=== PATIENT | female | born 1970 | race Caucasian/White ===

== ENCOUNTER 2021-08-12 06:55 | Day surgery (SDC) | payer BC ==
[~2021-08-12] VITALS: Ht 162.6 cm; Wt 136.4 kg
[~2021-08-12 06:55] MED LIST: ALLEGRA ALLERGY60 MG PO; ATORVASTATIN CA20 MG PO; COZAAR100 MG PO; HYDROCHLOROTH12.5 MG PO; HYDROCODON-ACE1 EA10 PO; IBU800 MG PO; LISINOPRIL10 MG PO; PERCOCET 10-321 EACH PO; SIMVASTATIN10 MG PO; SINGULAIR10 MG PO; ZOFRAN4 MG SL
[2021-08-12] MEDS ORDERED: XYZAL5 MG PO (07:41)
--- NOTE | 2021-08-12 08:48 | NUR ---
PT ALERT, ORIENTED AND SUPPORTED BY HER FRIEND TIEN. PT SEEMS ALITTLE DISCOURAGED, HAS HAD PROCEDURE PREVIOUS. PT REQUESTED PRAYER AND TIEN WILL REMAIN FOR DC. WILL FOLLOW NEEDED
--- NOTE | 2021-08-12 10:09 | NUR ---
08/12/21 1009 Madina Gerber 1000-PATIENT ARRIVED TO PACU ON RA RR EVEN. PATIENT AWAKE DROWSY DENIES PAIN OR NAUSEA. PATIENT TEARFUL. DA PAD IN PLACED CDI. IVF INFUSING. [facility] PAC. 1009-PATIENT AWAKE CRYING REPORTS "JUST EMOTIONAL" AND TALKING ABOUT PAST PROCEDURES. PATIENT DENIES PAIN OR NAUSEA. RN AT BEDSIDE COMFORTING PATIENT. WARM BLANKETS APPLIED. RA 99% RREVEN
[2021-08-12] MEDS ORDERED: MOTRIN IB200 MG PO (10:27)
[2021-08-12] MEDS ORDERED: HYDROCODON-ACE1 EA10 PO (10:28)
--- NOTE | 2021-08-14 15:17 | OR ---
[facility] [address], [place] [address] Signed DATE OF OPERATION: 08/12/2021 SURGEON: Taran Dior DO PREOPERATIVE DIAGNOSES: 1. Postmenopausal bleeding. 2. Thickened endometrium on ultrasound. 3. Morbid obesity. POSTOPERATIVE DIAGNOSES: 1. Postmenopausal bleeding. 2. Thickened endometrium on ultrasound. 3. Morbid obesity. PROCEDURES PERFORMED: 1. Hysteroscopy, dilation and curettage. 2. Mirena IUD insertion, lot number [id number], expiration July 2023. ANESTHESIA: MAC. ESTIMATED BLOOD LOSS: 5 mL. SPECIMEN: Endometrial curettings. IMPLANTS: Mirena IUD, lot number [id number], expiration July 2023. FINDINGS: Normal external genitalia with normal clitoris, urethral meatus, bilateral [place]'s, and Bartholin's. Normal vagina with excellent apical support. Normal cervix. On hysteroscopy, thickened endometrium with normal tubal ostia bilaterally. No fibroids or polyps in the uterine cavity. Endometrium biopsied with MyoSure Lite device in a circumferential manner. Mirena IUD inserted without difficulty with optimal placement confirmed by hysteroscopy. COMPLICATIONS: None. Electronically Signed By: TARAN DIOR DO 08/14/21 1517 PATIENT NAME: ROSETTA GIMENEZ OPERATIVE REPORT DATE OF : 70 REPORT #: [id number] PHYSICIAN: TARAN DIOR DO PCP: TONJA CALLAWAY MD REPORT IS CONFIDENTIAL AND NOT TO BE RELEASED WITHOUT AUTHORIZATION [facility] [address], [place] [address] Signed FLUID DEFICIT: 250 mL. INDICATIONS: Ms. Gimenez is a very pleasant 51-year-old G2, P2, white female with a history of postmenopausal bleeding. Ultrasound last fall demonstrated endometrial mass that was initially concerning for malignancy. She was unable to complete an office hysteroscopy due to discomfort and body habitus. The patient was taken to the operating room for hysteroscopy, D and C that demonstrated no endometrial mass on hysteroscopy and endometrial biopsy demonstrated benign proliferative endometrium. The patient was sent to RADIO STATION ENGINEER/Oncology for further evaluation and recommendations. He recommended repeat ultrasound, which was performed that demonstrated continued thickened endometrium, however, resolution of the previously seen uterine mass. The patient was consented for hysteroscopy, D and C, and Mirena IUD insertion. Risks, benefits, and alternatives were discussed in detail with the patient. The patient understands and wished to proceed with the procedure. TECHNIQUE: The patient was taken to the operating room. A time-out was performed to confirm correct patient and correct procedure. MAC anesthesia was adequately established and the patient was prepped and draped in the dorsal lithotomy position with feet in Yellofin stirrups. ICPs were on and running and no preoperative antibiotics were indicated. She did receive 5000 units of heparin preoperatively based on her preemie score. The bladder was drained. Weighted speculum was placed in the vagina and the anterior lip of the cervix was grasped with an Allis clamp. The cervix was gently dilated using Hegar dilators and an operative hysteroscope was placed in the cervical os and advanced under direct visualization into the uterine cavity without difficulty. Thickened endometrium with no polyps or fibroids and normal tubal ostia bilaterally were identified. The MyoSure Lite device was selected and circumferential curettage was performed with access representative biopsy of the endometrium completed. The hysteroscope was removed. The Mirena IUD was inserted and advanced to the fundus. The hysteroscope was then reinserted and optimal IUD positioning was confirmed. The IUD strings were trimmed to 4 cm and the patient was taken to the PACU in good and stable condition. Sponge, needle, and instrument count was correct x2 at the end of the procedure. Taran Dior DO Electronically Signed By: TARAN DIOR DO 08/14/21 1517 PATIENT NAME: ROSETTA GIMENEZ OPERATIVE REPORT DATE OF : 70 REPORT #: [id number] PHYSICIAN: TARAN DIOR DO PCP: TONJA CALLAWAY MD REPORT IS CONFIDENTIAL AND NOT TO BE RELEASED WITHOUT AUTHORIZATION [facility] [address] [place] [id number] Signed JMARQUIS/LUCY /[id number] Copies: ~ Electronically Signed By: TARAN DIOR DO 08/14/21 1517 PATIENT NAME: ROSETTA GIMENEZ OPERATIVE REPORT DATE OF : 70 REPORT #: [id number] PHYSICIAN: TARAN DIOR DO PCP: TONJA CALLAWAY MD REPORT IS CONFIDENTIAL AND NOT TO BE RELEASED WITHOUT AUTHORIZATION
--- NOTE | 2021-08-19 11:37 | PATH ---
[facility] [address] [place], [place] [address] Signed SPECIMEN(S): A ENDOMETRIAL CURETTINGS SPECIMEN SOURCE: A. ENDOMETRIAL CURETTINGS Touch CLINICAL HISTORY: Postmenopausal bleeding, thickened endometrial stripe. Hysteroscopy. FINAL PATHOLOGIC DIAGNOSIS: Endometrium, curettage: - Simple hyperplasia and minute fragment with glandular crowding, see Comment. - Background of disordered proliferative endometrium. - Fragments with features of benign endometrial polyp. - Myometrium with no histopathologic abnormality. - See comment. COMMENT: The fragment with glandular crowding is suspicious, but subdiagnostic for endometrial intraepithelial neoplasia/complex atypical hyperplasia (EIN/CAH) due to small size. The crowded glands demonstrate atypical cellular features distinct from the background endometrium, including mildly enlarged, rounded nuclei with vesicular chromatin and prominent nucleoli, however it should be noted that this fragment appears poorly processed. Due to the fragmentation of the specimen, it is difficult to definitively determine background endometrium from fragments of polyp. The fragments suggestive of polyp have disorganized glands and fibrous stroma. This case was reviewed in consultation with other members of our pathology staff. NAL:cml:C2NR MICROSCOPIC EXAMINATION: Histologic sections of all submitted blocks are examined by light microscopy. These findings, together with the gross examination, support the pathologic diagnosis. GROSS DESCRIPTION: The specimen, labeled "Ascencion endometrial curettings as per the requisition," is received in formalin and consists of an aggregate of white harding, rubbery soft PATIENT NAME: ROSETTA GIMENEZ PATHOLOGY DATE OF : 70 REPORT #: [id number] PHYSICIAN: ROSSY SHERIFF PCP: TONJA CALLAWAY MD REPORT IS CONFIDENTIAL AND NOT TO BE RELEASED WITHOUT AUTHORIZATION [facility] [address] [place] [phone] Signed tissue (3.5 x 3.3 x 0.6 cm). The specimen is submitted entirely in (A1A2). KD (under the direct supervision of a pathologist) The Gross Description was prepared using a voice recognition system. The report was reviewed for accuracy; however, sound-alike word errors, addition and/or deletions may occur. If there is any question about this report, please contact Client Services. PERFORMING LABORATORY: The technical component was performed by [employer] [address] (Sales Associate Key Holder: Fabi Thakur MD; CLIA# [id number]). [facility], [address] [place] [address] (CLIA# [id number]). Diagnostician: Geno Juarez MD Pathologist Electronically Signed 08/19/2021 Copies: ~ PATIENT NAME: ROSETTA GIMENEZ PATHOLOGY DATE OF : 70 REPORT #: [id number] PHYSICIAN: ROSSY SHERIFF PCP: TONJA CALLAWAY MD REPORT IS CONFIDENTIAL AND NOT TO BE RELEASED WITHOUT AUTHORIZATION
== END 2021-08-12 10:50 | disposition home or self-care (01) ==
LOC: DS 06:55 → OPS 06:55 → DS 07:30 → OPS 07:30
PROVIDERS: ATTEND Obstetrics & Gynecology
PROC: 0UH97HZ Insertion of Contraceptive Device into Uterus, Via Natural or Artificial Opening (ICD-10-PCS; 2021-08-12)
PROC: 0UDB8ZX Extraction of Endometrium, Via Natural or Artificial Opening Endoscopic, Diagnostic (ICD-10-PCS; principal; 2021-08-12 08:30)
DX: N95.0 Postmenopausal bleeding (principal); N85.01 Benign endometrial hyperplasia; I10 Essential (primary) hypertension; J45.909 Unspecified asthma, uncomplicated; E66.01 Morbid (severe) obesity due to excess calories; Z68.43 Body mass index [BMI] 50.0-59.9, adult; Z88.8 Allergy status to other drugs, medicaments and biological substances
CPT/HCPCS: 00952; J1100; J1644; J1885; J2001; J2250; J2405; J2704; J7121

== ENCOUNTER 2022-08-20 10:12 | Day surgery (SDC) | payer BC ==
[~2022-08-20] VITALS: Ht 162.6 cm; Wt 150.6 kg
[~2022-08-20 10:12] MED LIST changes: +MOTRIN IB200 MG PO; +XYZAL5 MG PO
--- NOTE | 2022-08-20 13:56 | NUR ---
08/20/22 1356 Madina Gerber 1342-PATIENT ARRIVED TO RECOVERY CCU RM 129. PATIENT REACTIVE TO VERBAL STIMULI REMAINS VERY DROWSY. SR. IVF INFUSING. 10L MASK 97% RR EVEN. ABDOMINAL SITE CDI. VAG PACKING IN PLACE. 1353-PATIENT REACTIVE TO VERBAL STIMULI KOKO EAR NOSE THROAT SURGEON AT BEDSIDE TALKING TO PATIENT. PATIENT DENIES CHEST PAIN OR NAUSEA. PATIENT NODS HEAD YES WHEN ASKED IF COMFORTABLE. 6L MASK 100% RR EVEN. 1355-PATIENT PLACED ON RA RR EVEN 100%. PLAN TO PLACE LAU CATHETER PER .
--- NOTE | 2022-08-20 14:20 | NUR ---
THIS RN TOOK OVER PATIENT CARE AT THIS TIME. PATIENT RESTING IN BED AT THIS TIME. THIS RN AND TWO OTHER RN PLACED LAU. PATIENT HAS PACKING PRESENT. NO DRAINAGE NOTED ON GAUZE. LAU HAS CLEAR YELLOW URINE PRESENT UPON INSERTION. REPORT RECIEVED FROM HEEL FORMER AND MD LORD. PATIENT WILL HAVE PACKING LEFT IN TODAY AND PLAN TO HAVE IT REMOVED TOMMORW. PATIENT TO BED BED REST, BUT MAY DANGLE HER LEGS AT THE BEDSIDE IF NEEDED. SCDS TO REMAIN IN PLACE. PATIENT MAY HAVE HER DIET ADVANCED TOLERATED. WILL TREND CARDIAC LABS THIS AFTERNOON. PATIENT DENIES ANY CHEST PAIN SINCE SHE WOKE FROM THE PROCEDURE. PATIENTS VITALS STABLE. PATIENT HAS 1 LAP SITE PRESENT AT THE UNBILICAL AREA WITH A BANDAGE OVER THE TOP. NO DRAINAGE AT THE SITE. PATIENT HAS RUBEN LAP SITES ACROSS MID ABD X5. PATIENT REPORTS 4/10 PAIN BUT STATES IT IS TOLERABLE AT THIS TIME. PATIENTS FRIEND CLAUDIA WILL BE ON HER WAY DOWN AND HAS BEEN UPDATED.
[2022-08-20] MEDS ORDERED: ATORVASTATIN CA40 MG PO (15:33)
[2022-08-20] MEDS ORDERED: LOSARTAN POTAS100 MG PO (15:34)
--- NOTE | 2022-08-20 16:00 | NUR ---
PATIENT RESTING IN BED. PATIENT HAS BEEN ON THE PHONE WITH FAMILY AND HER FRIEND CLAUDIA HAS BEEN AT THE BEDSIDE. PATIENT HAS FRESH WATER AND ICE CHIPS. PATIENT REPORTS PAIN CONTINUES TO BE TOELRABLE AT THIS TIME AND DENIES NEEDING ANYTHING FOR PAIN. CALL LIGHT IN REACH.
--- NOTE | 2022-08-20 16:28 | NUR ---
FOAM DISPENSER IN AT THE BEDSIDE.
--- NOTE | 2022-08-20 18:34 | NUR ---
PATIENT REQUESTED PRN PAIN MEDICATION. 1 TAB PRN PAIN MEDICATION. SEE EMAR. PATIENT DENIES ANY OTHER NEEDS AT THIS TIME. WILL CONTINUE TO CLOSELY MONITOR.
--- NOTE | 2022-08-20 19:25 | NUR ---
RECEIVED REPORT FROM DAY SHIFT RN. PATIENT REPOSITIONED IN BED. PATIENT DENIES ANY NEEDS. SCDS IN PLACE. CALL LIGHT IN REACH. PATIENT IS AAOX4
--- NOTE | 2022-08-20 20:41 | NUR ---
PATIENT ASSESMENT COMPLETED. PATIENTS VITALS TAKEN AND RECORDED. LAU EMPTIED AND INTAKE AND OUTPUT RECORDED. LAU CARE COMPLETED. PATIENT HAS NO DRAINAGE NOTED FROM VAGINA. PATIENTS SCDS REPOSITIONED AND ARE INUSE ON PATIENTS BILAT LOW EXT. PATIENTS IV X2 FLUSHED AND SL PER ORDER. PATIENT RATES PAIN AT A 4/10 AND DENIES THE NEED FOR INTERVENTION AT THIS TIME. PATIENT DENIES ANY NAUSEA. FRESH WATER PROVIDED. PATIENTS PM MEDS GIVEN PER ORDER. PATIENT DENIES ANY FURTHER NEEDS. CALL LIGHT IN REACH. PATIENT IS AAOX4.
--- NOTE | 2022-08-20 21:28 | NUR ---
PATIENT IS RESTING IN BED WATCHING TV. PATIENT DENIES ANY NEEDS. CALL LIGHT IN REACH.
--- NOTE | 2022-08-20 22:42 | NUR ---
LAB IN ROOM FOR SCHEDULED LAB DRAW. PATIENT RATES PAIN AT A 6/10, PRN PAIN MEDICATION GIVEN PER ORDER. PATIENT DENIES THE NEED FOR SNACK WITH PAIN MEDICATION. PATIENTS LAU DRAINING YELLOW URINE. PATIENT DENIES ANY FURTHER NEEDS. CALL LIGHT IN REACH.
--- NOTE | 2022-08-20 23:30 | NUR ---
PATIENT IS RESTING IN BED WITH EYES CLOSED, RR 14. HR 95. CALL LIGHT IN REACH.
--- NOTE | 2022-08-21 00:13 | NUR ---
PATIENT IS RESTING IN BED. VITALS TAKEN AND RECORDED. INTAKE AND OUTPUT RECORDED. ASSESMENT COMPLETED. PATIENT RATES PAIN AT A 3/10 AND DENIES THE NEED FOR INTERVENTION AT THIS TIME. PATIENT DENIES ANY NEEDS. CALL LIGHT IN REACH.
--- NOTE | 2022-08-21 01:39 | NUR ---
PATIENT IS RESTING IN BED WITH EYES CLOSED, RR17 AND HR 98. CALL LIGHT IN REACH.
--- NOTE | 2022-08-21 03:19 | NUR ---
PATIENT IS RESTING IN BED WITH EYES CLOSED, RR 15, HR 91. CALL LIGHT IN REACH.
--- NOTE | 2022-08-21 05:29 | NUR ---
LAB IN ROOM. VITALS TAKEN AND RECORDED. LAU EMPTIED AND LAU CARE COMPLETED. INTAKE AND OUTPUT RECORDED. PATIENT RATES PAIN AT A 4/10, PRN PAIN MEDICATION GIVEN PER ORDER. FRESH ICE WATER AND SNACK PROVIDED. ASSESMENT COMPLETED. PATIENT HAS NO DRANAGE FROM VAGINA AT THIS TIME. PATIENT DENIES ANY FURTHER NEEDS. IVS X2 FLUSHED AND SL PER ORDER. PATIENT IS AAOX4.
--- NOTE | 2022-08-21 07:43 | NUR ---
SHIFT REPORT RECEIVED FROM SHARIF ASHRAF. PT IS CURRENTLY ASLEEP, NO APPARENT DISTRESS. RESPIRATIONS EVEN AND UNLABORED, RR:17, SPO2:94% ON RA, HR:89.
--- NOTE | 2022-08-21 08:06 | NUR ---
DR. LORD IN ROOM. VAG PACKING AND LAU REMOVED.
--- NOTE | 2022-08-21 08:24 | NUR ---
MORNING MEDS GIVEN PER EMAR. PT SITTING UP IN BED AND EATING BREAKFAST. WILL DEFER ASSESSMENT UNTIL SHE IS FINISHED.
--- NOTE | 2022-08-21 08:30 | NUR ---
DR. MARTINEZ IN TO SEE PT.
--- NOTE | 2022-08-21 09:00 | NUR ---
PT HAS FINISHED BREAKFAST. ASSESSMENT COMPLETED, SEE DOCUMENTATION. REPORTS PAIN 2/10 & TOLERABLE, DENIES NEED FOR PAIN MEDICATION AT THIS TIME. DISCUSSED THAT PT CAN GET OOB WHEN READY, BUT TO CALL FIRST FOR ASSIST, PT AGREEABLE. OLD ABDOMINAL LAP SITES X5 APPEAR TO BE HEALING WELL; NEW UMBILICAL LAP SITE COVERED WITH STERISTRIPS AND BANDAID. SOME OLD DRAINAGE NOTED ON STERISTRIPS, BUT BANDAID APPEARS C/D/I. SCANT AMOUNT OF BLOOD NOTED ON CHUX FROM DR. LORD REMOVING PACKING, NOTHING NEW SINCE THEN. DISCUSSED THAT PT WILL HAVE CONTINUE TO HAVE SOME VAGINAL BLEEDING/CLOTS, BUT THAT PT SHOULD REPORT IF CLOTS ARE LARGER THAN AN EGG. PT DENIES FURTHER NEEDS AT THIS TIME, CALL LIGHT AND BELONGINGS WITHIN REACH.
--- NOTE | 2022-08-21 09:58 | NUR ---
CALL LIGHT ANSWERED, PT UP TO BATHROOM WITH SBA. TOLERATED ACTIVITY WELL WITHOUT DIZZINESS; PT STEADY ON FEET. PT ABLE TO VOID 250ML, URINE SLIGHTLY CLOUDY, NO BLEEDING NOTED. PT NOW HAS PERIPAD IN PLACE. PT BACK TO BED, SCD'S IN PLACE. INCREASED ABDOMINAL PAIN AFTER ACTIVITY, 1 TAB NORCO GIVEN. NO FURTHER REQUESTS, CALL LIGHT AND BELONGINGS WITHIN REACH.
--- NOTE | 2022-08-21 11:03 | NUR ---
PT SITTING UP IN BED AND WATCHING TV. REPORTS PAIN HAS IMPROVED TO 2/10 AND STATES THAT IS TOLERABLE FOR HER. NO FURTHER REQUESTS.
--- NOTE | 2022-08-21 12:02 | NUR ---
VSS. PT NOW EATING LUNCH.
--- NOTE | 2022-08-21 12:44 | NUR ---
ASSESSMENT COMPLETED, UNCHANGED FROM EARLIER. DENIES NEED FOR PAIN MEDICATION. NO BLOOD NOTED ON PERIPAD. DISCHARGE INSTRUCTION REVIEWED WITH PT, COPY PROVIDED, QUESTIONS ANSWERED. AWAITING PT'S PARENTS TO ARRIVE SO THAT SHE CAN GO HOME. SHE'S FINISHED LUNCH AND IS CURRENTLY VISITING WITH HER FRIEND/CO-WORKER.
--- NOTE | 2022-08-21 13:30 | NUR ---
VSS. IV X2 REMOVED WNL, CATHETER TIPS INTACT. PT MEDICATED WITH 1 TAB NORCO PRIOR TO LEAVING FOR 6/10 ABDOMINAL PAIN. PT HAS ALL BELONGINGS WITH HER, INCLUDING DISCHARGE INSTRUCTIONS AND PRESCRIPTION SCRIPT. ESCORTED TO FRONT BY CYCLE DIRECTOR RNANNAMARIA. PT'S PARENTS ARE DRIVING HER HOME.
--- NOTE | 2022-08-22 08:14 | OR ---
[facility] [address] [place], [place] [address] Signed DATE OF OPERATION: 08/20/2022 SURGEON: Taran Dior DO PREOPERATIVE DIAGNOSES: 1. Vaginal cuff dehiscence. 2. Acute vaginal bleeding. 3. Obesity. POSTOPERATIVE DIAGNOSES: 1. Vaginal cuff dehiscence. 2. Acute vaginal bleeding. 3. Obesity. 4. Cardiac ectopy. PROCEDURES PERFORMED: 1. Repair of vaginal cuff dehiscence. 2. Diagnostic laparoscopy. LEATHER CARTRIDGE BELT MAKER: Chilango Lopez M.D. ANESTHESIA: General. ESTIMATED BLOOD LOSS: 1500 mL including all bleeding in the emergency department. SPECIMENS: None. DRAINS: Jimenez to gravity. PACKING: Kerlix impregnated with Estrace. FINDINGS: Normal external genitalia with normal clitoris, urethral meatus, bilateral [place]'s and Bartholin glands. Heavy vaginal bleeding once in the operating room with large clots Electronically Signed By: TARAN DIOR DO (JD) 08/22/22 0814 PATIENT NAME: ROSETTA GIMENEZ OPERATIVE REPORT DATE OF : 70 REPORT #: [id number] PHYSICIAN: TARAN DIOR DO (JD) PCP: TONJA CALLAWAY MD REPORT IS CONFIDENTIAL AND NOT TO BE RELEASED WITHOUT AUTHORIZATION [facility] [address] [place] [id number] Signed noted. The vaginal cuff was noted to be slightly dehisced with active bleeding noted. This was made hemostatic with cuff repair. Vaginal packing as above. Once the patient was hemodynamically stable, a diagnostic laparoscopy was performed that demonstrates no intraabdominal bleeding. COMPLICATIONS: Intraoperative acute blood loss with hemodynamic instability requiring transfusion as well as hypertension with cardiac actopy. The patient was admitted to the ICU postop. See anesthesia notes and hospitalist consultation for details. INDICATIONS: Mrs. Gimenez is a very pleasant 52-year-old female, three weeks status post robotic assisted total laparoscopic hysterectomy, bilateral salpingectomy, and cystoscopy in [place], [place] with Dr. Bj Jason, Electromechanical Assembly Technician-Oncology for endometrial hyperplasia. Surgery was uncomplicated and pathology demonstrates no endometrial hyperplasia or malignancy. Postoperative course had been normal and she was seen a two week postoperative visit at last week. Two days ago, she called complaining of a small amount of vaginal spotting. This morning, she returned from getting breakfast and had large gush of vaginal bleeding and clots that continued. She was then seen in the emergency department with continued heavy ongoing bleeding. The cuff was unable to be visualized easily in the emergency department. Decision was made to proceed with exam under anesthesia and repair of vaginal cuff dehiscence. Risks, benefits, and alternatives were discussed in detail with the patient. The patient understands and wished to proceed with the procedure. DESCRIPTION OF PROCEDURE: The patient was taken the OR, where a time-out was performed to confirm correct patient, correct procedure. General anesthesia was adequately established. The patient was prepped and draped in the dorsal lithotomy position with feet in Yellofin stirrups. A large amount of vaginal bleeding and clots was noted once the patient was brought to the OR. A weighted swan neck speculum was placed in the vagina and the vaginal cuff was identified. Heavy vaginal bleeding was noted coming from the vaginal cuff. Stay suture was placed on the right vaginal cuff corner with #0 Vicryl and another was placed in the left corner. The vaginal cuff was then reapproximated using 0-Vicryl in a running locked manner. Two additional sutures of [id number] of 0-Vicryl were placed at the right corner and in the midportion of the cuff to assure hemostasis. The vagina was copiously irrigated and found to be hemostatic. During this time, the patient began to have significant ectopy and concern for heavy bleeding and acute blood loss leading to the cardio vascular changes was discussed. Decision was made with Anesthesia to transfuse 1 unit of packed red blood cells. Intraoperative labs were drawn that demonstrates a small drop in hemoglobin and normal coags. A 12-lead EKG was performed and was normal, and after discussion with Anesthesia, despite decision was made, the patient was stable for diagnostic laparoscopy to ensure that no intraabdominal bleeding Electronically Signed By: TARAN LYNN) DO RISA 08/22/22 0814 PATIENT NAME: ROSETTA GIMENEZ OPERATIVE REPORT DATE OF : 70 REPORT #: [id number] PHYSICIAN: TARAN DIOR DO (JD) PCP: TONJA CALLAWAY MD REPORT IS CONFIDENTIAL AND NOT TO BE RELEASED WITHOUT AUTHORIZATION [address] [address] Signed was occurring. A 2 cm below the umbilicus was infiltrated with 0.25% Marcaine with epinephrine. A 3 cm curvilinear incision was made and the fascia was grasped with hemostats, elevated and incised using Metzenbaum scissors. Stay sutures of 0-Vicryl placed in the superior and inferior edges of the fascial incision. Peritoneum was entered bluntly and a Christopher operative port was placed. The abdomen was insufflated with low opening pressures. Survey of the abdomen was performed, demonstrated no intraabdominal bleeding. Insufflation was ceased and trocar was removed. Fascia was reapproximated using 0-Vicryl in a running locked manner. Skin was reapproximated using 4-0 Monocryl. The vagina was then packed with Estrace impregnated Kerlix. The patient was then taken to the ICU for additional postoperative care. Dr. Estes was consulted, and the patient appears to be doing very well at this time. Dr. Lopez was present and participated in all portions of the procedure. I appreciate the intraoperative collaboration with Anesthesia. DO ALBANIA Dillon/WHITLEYL /[id number] Copies: ~ Electronically Signed By: TARAN DIOR DO (JD) 08/22/22 0814 PATIENT NAME: ROSETTA GIMENEZ OPERATIVE REPORT DATE OF : 70 REPORT #: [id number] PHYSICIAN: TARAN DIOR DO (JD) PCP: TONJA CALLAWAY MD REPORT IS CONFIDENTIAL AND NOT TO BE RELEASED WITHOUT AUTHORIZATION
--- NOTE | 2022-08-22 08:14 | PREHP ---
[facility] [address], [place] [address] Signed ADMISSION DATE: 08/20/2022 CHIEF COMPLAINT: Vaginal bleeding after hysterectomy. HISTORY OF PRESENT ILLNESS: Ms. Gimenez is a very pleasant 52-year-old white female who presents to the emergency department with vaginal bleeding. She is status post robotic assisted total laparoscopic hysterectomy, bilateral salpingectomy, and cystoscopy for history of endometrial hyperplasia with continued postmenopausal bleeding. This procedure was performed in [place], [place] with Dr. Bj Jason, Magician/Illusionist/Oncology surgeon. The patient reports that she had been doing very well. One to two days ago, she had a small amount of vaginal spotting. This morning, she went to get something for breakfast and upon return, had a large gush of blood with bright red vaginal bleeding. She presented to the emergency department where bleeding continued and multiple large clots were evacuated. The vagina was packed by the emergency physician and I was called for further evaluation. The patient reports that she is anxious, but otherwise doing well. No chest pain or shortness of breath. She reports that she had no abnormal postoperative activity in the past several days and has been generally following recommendations for low activity. No intercourse, vigorous exercise, etc. She reports no other vaginal complaints prior to today's episode. PAST MEDICAL HISTORY: 1. Hypertension. 2. Seasonal allergies. 3. Asthma, well controlled. CURRENT MEDICATIONS: 1. Cozaar 100 mg p.o. daily. 2. Hydrochlorothiazide 12.5 mg. ALLERGIES: Claritin. SURGICAL HISTORY: Left wrist surgery 1992 and 2002. Gallbladder 1994. 2000 and 2002. Sinus surgery in 1999. Right ankle surgery in 2014. Hysteroscopy, D and C 2021 and robotic assisted TLHBS cysto July 2022. FAMILY HISTORY: Noncontributory. Electronically Signed By: TARAN LORD DO (JD) 08/22/22 0814 PATIENT NAME: ROSETTA GIMENEZ PREOPERATIVE H&P DATE OF : 70 REPORT #: [id number] PHYSICIAN: TARAN LORD (GERALD) PCP: TONJA CALLAWAY MD REPORT IS CONFIDENTIAL AND NOT TO BE RELEASED WITHOUT AUTHORIZATION [facility] [address], [place] [address] Signed SOCIAL HISTORY: The patient does not smoke cigarettes, use alcohol or recreational drugs. 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 REVIEW OF SYSTEMS: A complete review of systems was performed and negative except per HPI. PHYSICAL EXAMINATION: VITAL SIGNS: Temp 98, pulse 59, respiratory rate 16, blood pressure significantly elevated 196/126, pulse ox 99. HEENT: Normocephalic, atraumatic. NECK: Supple. Trachea midline. No lymphadenopathy. HEART: Regular rate and rhythm. LUNGS: Clear to auscultation bilaterally. ABDOMEN: Obese, soft, nondistended, nontender. No hepatomegaly, organomegaly or hernias appreciated. No rebound or guarding. EXTREMITIES: No edema. PELVIC: Large amount of vaginal bleeding with clots present. Vaginal packing was removed with. Unable to visulize the vaginal cuff, but continued vaginal bleeding appreciated. Exam very limited in the ED bed and decision was made to proceed with exam under anesthesia in the OR with correction of bleeding assumed to be from vaginal cuff. LABORATORY DATA: WBC is 8.8, hemoglobin 14.6, hematocrit 44.3, platelets 277. Sodium 140, potassium 3.5, chloride 101, carbon dioxide 26, BUN 19, creatinine 1.11, unchanged from one year ago. Glucose 125, calcium 9.5. Coronavirus screen pending. Type and screen ordered and pending at the time of dictation. ASSESSMENT: 1. Postoperative vaginal bleeding, most consistent with vaginal cuff separation. 2. Hypertension. 3. Obesity. PLAN: Reviewed vaginal bleeding postoperatively with the patient and recommend exam under anesthesia for better characterization of the vaginal cuff and to identify the area of active bleeding with likely revision of vaginal cuff. Discussed that this could be performed vaginally, but if necessary, would require laparoscopic approach. We reviewed procedure in detail including risks, benefits, and alternatives. Risks include, but are not limited to infection, bleeding, or injury to surrounding GI, structures. Discussed possible need for blood transfusion; however, I think this is quite unlikely given starting hemoglobin. We reviewed her elevated blood pressure and will communicate and coordinate stabilization of her hypertension preoperatively with the help Electronically Signed By: TARAN LYNN) DO RISA 08/22/22 0814 PATIENT NAME: ROSETTA GIMENEZ PREOPERATIVE H&P DATE OF : 70 REPORT #: [id number] PHYSICIAN: TARAN LORD DO (JD) PCP: TONJA CALLAWAY MD REPORT IS CONFIDENTIAL AND NOT TO BE RELEASED WITHOUT AUTHORIZATION [facility] [address] [place] [address] Signed of anesthesia. All questions were answered to the best of my ability and consents were completed. No preoperative antibiotics or heparin indicated at this time. All questions were answered to the best of my ability and to the patient's apparent satisfaction. We will proceed as planned. DO ALBANIA Dillon/LUCY /[id number] Copies: ~ Electronically Signed By: TARAN LORD DO (JD) 08/22/22 0814 PATIENT NAME: ROSETTA GIMENEZ PREOPERATIVE H&P DATE OF : 70 REPORT #: [id number] PHYSICIAN: TARAN LORD DO (JD) PCP: TONJA CALLAWAY MD REPORT IS CONFIDENTIAL AND NOT TO BE RELEASED WITHOUT AUTHORIZATION
== END 2022-08-21 13:30 | disposition home or self-care (01) ==
LOC: ED 10:12 → DS 11:49 → DSVR 11:50 → CCU 13:04 → DS 08-21 13:30
PROVIDERS: ATTEND Obstetrics & Gynecology
PROC: 0UQG7ZZ Repair Vagina, Via Natural or Artificial Opening (ICD-10-PCS; principal; 2022-08-20 12:20)
DX: T81.31XA Disruption of external operation (surgical) wound, not elsewhere classified, initial encounter (principal); E66.9 Obesity, unspecified; Q24.8 Other specified congenital malformations of heart; I10 Essential (primary) hypertension; Z20.822 Contact with and (suspected) exposure to COVID-19
CPT/HCPCS: 00940; 36415; 80048; 80053; 84484; 85025; 85027; 85384; 85610; 85730; 86850; 86900; 86901; A9270; C9803; J1100; J1650; J1885; J2405; J2704; J3010; J7030; J7121; U0003

== ENCOUNTER 2024-10-01 00:29 | Emergency (ER) | payer BC ==
[~2024-10-01] VITALS: Ht 162.6 cm; Wt 142.0 kg
[~2024-10-01 00:29] MED LIST changes: +ATORVASTATIN CA40 MG PO; +LOSARTAN POTAS100 MG PO
[2024-10-01] MEDS ORDERED: METOPROLOL SUCC25 MG PO (00:50)
[2024-10-01] MEDS ORDERED: FLUOXETINE HCL20 MG PO (00:50)
[2024-10-01] MEDS ORDERED: ondansetron HCL 4 MG/2 ML VIAL IV PRN (01:00)
[2024-10-01] MEDS ORDERED: KETOROLAC TROMETHAMINE 30 MG/ML VIAL IV ONE (01:00)
[2024-10-01 01:01] LABS: BASOPHILS 0.6 % (0-2); EOSINOPHILS 1.1 % (0-6); HEMATOCRIT 43.3 % (35.0-50.0); HEMOGLOBIN 15.1 g/dL (12.0-18.0); MCH 32.8 (27-36); MCHC 34.8 g/dl (30-36); MONOCYTES 9.7 % (0-12); NEUTROPHILS 68.6 % (39-80); PLATELET COUNT 228 K/uL (140-440); RBC 4.61 M/ul (4.3-5.7); RDW 14.2 (10.5-15.0)
[2024-10-01 01:24] LABS: ALBUMIN 3.6 g/dL (3.4-5.0); ALBUMIN/GLOBULIN RATIO 0.92 (1.1-2.4); ANION GAP 9.6 (7-21); BILIRUBIN, TOTAL 0.6 mg/dL (0.2-1.0); BUN/CREATININE RATIO 20.83 (6.0-28.6); CALCIUM 9.4 mg/dL (8.5-10.1); CREATININE, SERUM 1.2 mg/dL (0.55-1.02); POTASSIUM 3.6 mmol/L (3.5-5.1); PROTEIN, TOTAL 7.5 g/dL (6.4-8.2)
[2024-10-01] MEDS ORDERED: LACTATED RINGER'S 1,000 ML IV ONE (01:45)
[2024-10-01] MEDS ORDERED: HYDROCODON-ACE1 EA10 PO ×2 (02:29→02:51)
[2024-10-01] MEDS ORDERED: FLOMAX0.4 MG PO ×2 (02:29→02:51)
[2024-10-01] MEDS ORDERED: TAMSULOSIN HCL 0.4 MG CAP PO ONE (02:30)
[2024-10-01] MEDS ORDERED: HYDROCODONE BIT/ACETAMINOPHEN 5/325 MG 1 TAB HOME.PACK PO ONE (02:30)
[2024-10-01 02:37] LABS: BILIRUBIN, URINE NEGATIVE (negative); BLOOD/HGB, URINE LARGE (Negative); KETONE, URINE TRACE (Negative); LEUK ESTERASE, URINE NEGATIVE (negative); NITRITE, URINE POSITIVE (negative)
[2024-10-01 02:44] LABS: EPITHELIAL CELLS, URINE SQUAMOUS 1+ /lpf (0-1+); RED BLOOD CELLS, URINE >50 /hpf (0-5)
[2024-10-01 02:45] LABS: BACTERIA, URINE 1+ /hpf (negative); CASTS, URINE NONE SEEN \\lpf; COLLECTION TYPE, URINE CLEAN CATCH; CRYSTALS, URINE NONE SEEN (0-1+); REFLEX CULTURE, URINE No (No); WHITE BLOOD CELLS, URINE 0-1 /HPF (0-5)
[2024-10-01] MEDS ORDERED: MACROBID 100 M100 MG PO (02:51)
[2024-10-01] MEDS ORDERED: NITROFURANTOIN MONOHYD MACROCR 100 MG HOME.PACK PO ONE (03:00)
[2024-10-01 03:04] VITALS: BP 140/71
== END 2024-10-01 03:02 | disposition home or self-care (01) ==
LOC: ED 00:29
PROVIDERS: Internal Medicine
DX: N13.2 Hydronephrosis with renal and ureteral calculous obstruction (principal); Z79.899 Other long term (current) drug therapy; Z88.8 Allergy status to other drugs, medicaments and biological substances; I10 Essential (primary) hypertension
CPT/HCPCS: 36415; 74176; 80053; 81001; 85025; 96374; 96375; 99284-25; A9270; J1885; J2405; J7121